=== PATIENT | female | born 1995 | race Caucasian/White ===

== ENCOUNTER 2018-07-25 22:59 | Emergency (ER) | payer BC ==
[2018-07-26] MEDS ORDERED: IPRATROPIUM-ALBUTEROL 3 ML NEB INHALATION STA (01:15)
[2018-07-26] MEDS ORDERED: SODIUM CHLORIDE 0.9% 1,000 ML IV STA (01:15)
--- NOTE | 2018-07-26 01:16 | ED ---
SOB HPI - General Chief Complaint: Shortness of Breath Stated Complaint: NIRALI Time Seen by Provider: 07/26/18 01:14 Source: patient, RN notes reviewed, old records reviewed Mode of arrival: ambulatory Limitations: no limitations - History of Present Illness Initial Comments: This is a 20-year-old female the ER for evaluation this patient does say for paulina luation of shortness of breath. Shortness breath 4 days since Tuesday. No improvement in symptoms diagnosed with muscle strain. Patient has no recent travel history or sick contacts. No prior history of shortness of breath or chest pain. No fevers, no cough congestion significant sick contacts. Patient did have chest x-ray today unsure of results. Patient is here with family, no one with similar complaints. Patient states the pain is worse when she takes a deep breath worse when she is doing activity. MD Complaint: shortness of breath -: days(s) (5) Severity: mild Severity scale (1-10): 3 Quality: dull Consistency: intermittent Improves With: nothing Worsens With: exertion, movement Context: recent URI Associated Symptoms: pain with inspiration, cough, other (Anxiety) Treatments Prior to Arrival: none - Related Data Allergies Allergy/AdvReac Type Severity Reaction Status Date / Time amoxicillin AdvReac Rash/Hives Verified 07/25/18 23:03 Review of Systems ROS Statement: Those systems with pertinent positive or pertinent negative responses have been documented in the HPI. ROS Other: All systems not noted in ROS Statement are negative. Past Medical History Past Medical History: No Reported History History of Any Multi-Drug Resistant Organisms: None Reported Past Surgical History: No Surgical Hx Reported Past Psychological History: No Psychological Hx Reported Smoking Status: Never smoker Past Alcohol Use History: Occasional Past Drug Use History: None Reported General Exam Limitations: no limitations General appearance: alert, in no apparent distress Head exam: Present: atraumatic, normocephalic, normal inspection Eye exam: Present: normal appearance, PERRL, EOMI. Absent: scleral icterus, conjunctival injection, periorbital swelling ENT exam: Present: normal exam, mucous membranes moist Neck exam: Present: normal inspection. Absent: tenderness, meningismus, lymphadenopathy Respiratory exam: Present: normal lung sounds bilaterally. Absent: respiratory distress, wheezes, rales, rhonchi, stridor Cardiovascular Exam: Present: regular rate, normal rhythm, normal heart sounds. Absent: systolic murmur, diastolic murmur, rubs, gallop, clicks GI/Abdominal exam: Present: soft, normal bowel sounds. Absent: distended, tenderness, guarding, rebound, rigid Extremities exam: Present: normal inspection, full ROM, normal capillary refill. Absent: tenderness, pedal edema, joint swelling, calf tenderness Back exam: Present: normal inspection Neurological exam: Present: alert, oriented X3, CN II-XII intact Psychiatric exam: Present: normal affect, normal mood Skin exam: Present: warm, dry, intact, normal color. Absent: rash Course Vital Signs 07/25/18 07/26/18 07/26/18 23:00 02:04 02:10 Temperature 98.3 F Pulse Rate 99 84 96 Respiratory 18 Rate Blood Pressure 147/92 O2 Sat by Pulse 100 Oximetry 07/26/18 07/26/18 04:30 04:37 Temperature 97.9 F Pulse Rate 72 Respiratory 12 20 Rate Blood Pressure 105/67 O2 Sat by Pulse 100 Oximetry - Reevaluation(s) Reevaluation #1: 07/26/18 01:48 Medical record is reviewed Reevaluation #2: 07/26/18 01:48 Patient is in no acute distress, x-ray outpatient is reviewed which is negative Medical Decision Making - Medical Decision Making 22 female the ER for shortness of breath, second evaluation for shortness of breath both her primary care as well as outpatient x-ray, patient's in no acute distress but also complaining of left-sided chest pain. CTA chest is negative for acute disease on patient will be discharged to follow-up with primary care - Lab Data Result diagrams: 07/26/18 01:49 07/26/18 01:49 Lab Results 07/26/18 07/26/18 07/26/18 Range/Units 01:49 01:49 01:49 WBC 8.3 (3.8-10.6) k/uL RBC 4.77 (3.80-5.40) m/uL Hgb 14.2 (11.4-16.0) gm/dL Hct 42.8 (34.0-46.0) % MCV 89.7 (80.0-100.0) fL MCH 29.7 (25.0-35.0) pg MCHC 33.1 (31.0-37.0) g/dL RDW 12.0 (11.5-15.5) % Plt Count 227 (150-450) k/uL Neutrophils % 63 % Lymphocytes % 28 % Monocytes % 5 % Eosinophils % 2 % Basophils % 0 % Neutrophils # 5.2 (1.3-7.7) k/uL Lymphocytes # 2.3 (1.0-4.8) k/uL Monocytes # 0.4 (0-1.0) k/uL Eosinophils # 0.1 (0-0.7) k/uL Basophils # 0.0 (0-0.2) k/uL PT 10.2 (9.0-12.0) sec INR 0.9 (<1.2) APTT 25.5 (22.0-30.0) sec D-Dimer 0.43 (<0.60) mg/L FEU Sodium 140 (137-145) mmol/L Potassium 4.3 (3.5-5.1) mmol/L Chloride 108 H (98-107) mmol/L Carbon Dioxide 21 L (22-30) mmol/L Anion Gap 11 mmol/L BUN 13 (7-17) mg/dL Creatinine 0.79 (0.52-1.04) mg/dL Est GFR (CKD-EPI)AfAm >90 (>60 ml/min/1.73 sqM) Est GFR (CKD-EPI)NonAf >90 (>60 ml/min/1.73 sqM) Glucose 91 (74-99) mg/dL Calcium 10.1 (8.4-10.2) mg/dL Total Bilirubin 0.5 (0.2-1.3) mg/dL AST 16 (14-36) U/L ALT 11 (9-52) U/L Alkaline Phosphatase 50 (38-126) U/L Creatine Kinase 53 (30-135) U/L Troponin I (0.000-0.034) ng/mL NT-Pro-B Natriuret Pep pg/mL Total Protein 7.4 (6.3-8.2) g/dL Albumin 4.5 (3.5-5.0) g/dL 07/26/18 07/26/18 Range/Units 01:49 01:49 WBC (3.8-10.6) k/uL RBC (3.80-5.40) m/uL Hgb (11.4-16.0) gm/dL Hct (34.0-46.0) % MCV (80.0-100.0) fL MCH (25.0-35.0) pg MCHC (31.0-37.0) g/dL RDW (11.5-15.5) % Plt Count (150-450) k/uL Neutrophils % % Lymphocytes % % Monocytes % % Eosinophils % % Basophils % % Neutrophils # (1.3-7.7) k/uL Lymphocytes # (1.0-4.8) k/uL Monocytes # (0-1.0) k/uL Eosinophils # (0-0.7) k/uL Basophils # (0-0.2) k/uL PT (9.0-12.0) sec INR (<1.2) APTT (22.0-30.0) sec D-Dimer (<0.60) mg/L FEU Sodium (137-145) mmol/L Potassium (3.5-5.1) mmol/L Chloride (98-107) mmol/L Carbon Dioxide (22-30) mmol/L Anion Gap mmol/L BUN (7-17) mg/dL Creatinine (0.52-1.04) mg/dL Est GFR (CKD-EPI)AfAm (>60 ml/min/1.73 sqM) Est GFR (CKD-EPI)NonAf (>60 ml/min/1.73 sqM) Glucose (74-99) mg/dL Calcium (8.4-10.2) mg/dL Total Bilirubin (0.2-1.3) mg/dL AST (14-36) U/L ALT (9-52) U/L Alkaline Phosphatase (38-126) U/L Creatine Kinase (30-135) U/L Troponin I <0.012 (0.000-0.034) ng/mL NT-Pro-B Natriuret Pep 28 pg/mL Total Protein (6.3-8.2) g/dL Albumin (3.5-5.0) g/dL - Radiology Data Radiology results: report reviewed (CT angiogram chest is negative for acute disease), image reviewed Disposition Clinical Impression: Chest pain Disposition: HOME SELF-CARE Condition: Good Instructions (If sedation given, give patient instructions): Chest Wall Pain (ED) Is patient prescribed a controlled substance at d/c from ED?: No Referrals: Sonia Peacock MD [Primary Care Provider] - 1-2 days
[2018-07-26 02:20] LABS: Basophils % (A) 0 %; Eosinophils # (A) 0.1 k/uL (0-0.7); Eosinophils % (A) 2 %; HCT 42.8 % (34.0-46.0); HGB 14.2 gm/dL (11.4-16.0); Lymphocytes # (A) 2.3 k/uL (1.0-4.8); Lymphocytes % (A) 28 %; MCH 29.7 pg (25.0-35.0); MCHC 33.1 g/dL (31.0-37.0); MCV 89.7 fL (80.0-100.0); Mean Platelet Volume 6.7; Monocytes # (A) 0.4 k/uL (0-1.0); Monocytes % (A) 5 %; Neutrophils # (A) 5.2 k/uL (1.3-7.7); Neutrophils % (A) 63 %; Platelet Count 227 k/uL (150-450); RBC 4.77 m/uL (3.80-5.40); WBC 8.3 k/uL (3.8-10.6)
[2018-07-26 02:41] LABS: D-Dimer 0.43 mg/L FEU (<0.60); INR 0.9 (<1.2); Partial Thromboplastin Time 25.5 sec (22.0-30.0); Prothrombin Time 10.2 sec (9.0-12.0)
[2018-07-26 02:51] LABS: ALT 11 U/L (9-52); AST 16 U/L (14-36); Albumin 4.5 g/dL (3.5-5.0); Alkaline Phosphatase 50 U/L (38-126); Anion Gap 11 mmol/L; Blood Urea Nitrogen 13 mg/dL (7-17); Calcium 10.1 mg/dL (8.4-10.2); Carbon Dioxide 21 mmol/L (22-30); Chloride 108 mmol/L (98-107); Creatine Kinase 53 U/L (30-135); Glucose 91 mg/dL (74-99); Potassium 4.3 mmol/L (3.5-5.1); Sodium 140 mmol/L (137-145); Total Bilirubin 0.5 mg/dL (0.2-1.3); Total Protein 7.4 g/dL (6.3-8.2)
--- NOTE | 2018-07-26 03:52 | CT ---
EXAM: CT Angiography Chest With Intravenous Contrast CLINICAL HISTORY: ITS.REASON CT Reason: Pain TECHNIQUE: Axial computed tomographic angiography images of the chest with intravenous contrast using pulmonary embolism protocol. CTDI is 7 mGy and DLP is 230 mGy-cm. This CT exam was performed using one or more of the following dose reduction techniques: automated exposure control, adjustment of the mA and/or kV according to patient size, and/or use of iterative reconstruction technique. MIP reconstructed images were created and reviewed. COMPARISON: No relevant prior studies available. FINDINGS: Pulmonary arteries: No filling defects. Aorta: No thoracic aortic aneurysm. Lungs: No mass. No consolidation. Pleural space: No significant effusion. No pneumothorax. Heart: No cardiomegaly or pericardial effusion. Bones/joints: No acute fracture or dislocation. Soft tissues: Unremarkable. Lymph nodes: No enlarged lymph nodes. IMPRESSION: No acute intrathoracic findings.
[2018-07-26 04:31] VITALS: BP 105/67; PULSE 72; TEMP 97.9
[2018-07-26 04:37] VITALS: RESP 20
== END 2018-07-26 04:39 | disposition home or self-care (01) ==
LOC: EC 22:59
DX: R07.1 Chest pain on breathing (principal); R06.02 Shortness of breath; F41.9 Anxiety disorder, unspecified; R05 Cough; Z88.0 Allergy status to penicillin
CPT/HCPCS: 36415; 94640; 93005; 85379; 83880; 80053; 82550; 84484; 85025; 85610; 85730; 71275; 99285; 96360; Q9967

== ENCOUNTER → 2018-07-25 | Outpatient (CLI) | payer BC ==
--- NOTE | 2018-07-25 12:59 | XR ---
EXAMINATION TYPE: XR chest 2V DATE OF EXAM: 07/25/2018 COMPARISON: NONE HISTORY: Shortness of breath TECHNIQUE: Frontal and lateral views of the chest are obtained. FINDINGS: There is no focal air space opacity, pleural effusion, or pneumothorax seen. The cardiac silhouette size is within normal limits. There is a spinal curvature. The osseous structures are int act. IMPRESSION: No acute cardiopulmonary process.
== END ==
LOC: RADXRYALE 10:51
PROVIDERS: ATTEND Internal Medicine
DX: R06.02 Shortness of breath (principal)
CPT/HCPCS: 71046

== ENCOUNTER 2022-02-25 15:03 | Inpatient (IN) | payer BC, OTHER ==
[2022-03-03] MEDS ORDERED: BUTORPHANOL 1 MG/ML 1 ML VIAL IV PRN ×2 (19:01→19:51)
[2022-03-03] MEDS ORDERED: DINOPROSTONE 10 MG INSERT.ER VAGINAL ONE (19:30)
--- NOTE | 2022-03-03 19:58 | P.HPOB ---
History of Present Illness H&P Date: 03/03/22 Chief Complaint: 41-0/7 weeks, cervical ripening, induction the patient is a 26-year-old 1 para 0 admitted at 41-0/7 weeks as established by last menstrual period and 8 week ultrasound. She is admitted for Cervidil cervical ripening secondary to unfavorable cervix in a postdates . Her has otherwise been entirely uncomplicated. She is Rh- and received RhoGAM at 28 weeks. On labor and delivery, all signs reassuring with a category 1 heart rate tracing. Group B strep status is negative. Obstetrical history: 1 para 0 with current statistics listed in history present illness. EDC of 02/25/2022 was established by last menstrual period and confirmed by an 8 week ultrasound. Laboratory workup demonstrates a blood type of O- with a negative antibody screen. Rubella status is immune. The remainder of the laboratory workup was within normal limits. One hour Glucola was normal and group B strep status is negative. Gynecologic history: Unremarkable with no history of any infections to include STDs. Review of Systems review of systems is confined to history of present illness. Past Medical History Past Medical History: GERD/Reflux History of Any Multi-Drug Resistant Organisms: None Reported Past Surgical History: No Surgical Hx Reported Past Anesthesia/Blood Transfusion Reactions: No Reported Reaction Past Psychological History: No Psychological Hx Reported Smoking Status: Never smoker Past Alcohol Use History: Occasional Past Drug Use History: None Reported - Past Family History Mother Family Medical History: No Reported History Medications and Allergies Home Medications Medication Instructions Recorded Confirmed Type Vit No.179/Iron/Folic 1 each PO DAILY 03/03/22 03/03/22 History [ Tablet] Allergies Allergy/AdvReac Type Severity Reaction Status Date / Time amoxicillin AdvReac Rash/Hives Verified 02/16/22 08:30 Exam Vital Signs Temp Pulse Resp BP 03/03/22 18:58 97.5 F L 118 H 17 141/76 Intake and Output 03/03/22 03/03/22 03/03/22 06:59 14:59 22:59 Other: Weight 85.275 kg in general, this is a well-developed, well-nourished white female in no acute distress. Her heart has a regular rhythm and rate without murmur. Her lungs are clear to auscultation bilaterally in all moise. Her abdomen is gravid, nondistended, has normal active bowel sounds, soft, nontender, and without any palpable masses aside from the uterine fundus. Her extremities are without any cyanosis, clubbing, or significant edema and are nontender to palpation bilaterally. Digital cervical examination demonstrates her cervix remain fingertip in dilation, approximately 50% effaced with the vertex in presentation at -2 station. The cervix is very posterior. Assessment and Plan (1) Unfavorable cervix in term Current Visit: Yes Status: Acute Code(s): O34.40 - MATERNAL CARE FOR OTH AB NLT OF CERVIX, UNSP TRIMESTER SNOMED Code(s): 906028998 (2) Post-dates Current Visit: Yes Status: Acute Code(s): O48.0 - POST-TERM SNOMED Code(s): 52665173 Plan: the patient is admitted for Cervidil cervical ripening which was placed into the posterior fornix in standard fashion. She will have close maternal and surveillance and expectant management will be practiced. I have explained risks and complications of the procedures involved and she is understood and agreed to proceed. She is a good candidate for either IV or epidural analgesia, whichever she may choose.
[2022-03-03 22:16] LABS: Basophils % (A) 0 %; Eosinophils # (A) 0.2 k/uL (0-0.7); Eosinophils % (A) 2 %; HCT 33.7 % (34.0-46.0); HGB 11.4 gm/dL (11.4-16.0); Hypochromasia Slight; Lymphocytes # (A) 1.6 k/uL (1.0-4.8); Lymphocytes % (A) 18 %; MCH 30.5 pg (25.0-35.0); MCHC 33.7 g/dL (31.0-37.0); MCV 90.4 fL (80.0-100.0); Mean Platelet Volume 8.4; Monocytes # (A) 0.7 k/uL (0-1.0); Monocytes % (A) 8 %; Neutrophils # (A) 6.2 k/uL (1.3-7.7); Neutrophils % (A) 69 %; Platelet Count 229 k/uL (150-450); RBC 3.72 m/uL (3.80-5.40); RDW 13.6 % (11.5-15.5); WBC 9.1 k/uL (3.8-10.6)
[2022-03-04] MEDS: LACTATED RINGERS 1,000 ML IV SCH ×3 (05:40→15:54)
[2022-03-04] MEDS ORDERED: CARBOPROST TROMETHAMINE 250 MCG/ML 1 ML AMP IM PRN (06:00)
[2022-03-04] MEDS ORDERED: METHYLERGONOVINE 0.2 MG/ML 1 ML AMP IM PRN (06:00)
[2022-03-04] MEDS ORDERED: miSOPROStoL 200 MCG TAB PO PRN (06:00)
[2022-03-04] MEDS ORDERED: LIDOCAINE 0.5% (PF) 5 MG/ML (50 ML SDV) SQ PRN (06:00)
[2022-03-04] MEDS ORDERED: OXYTOCIN 10 UNIT/ML 1 ML VIAL IM PRN (06:00)
[2022-03-04] MEDS ORDERED: TERBUTALINE 1 MG/ML VIAL SQ PRN (06:00)
[2022-03-04] MEDS ORDERED: TRANEXAMIC ACID IN NACL,ISO-OS 1,000 MG in EMPTY BAG 1 BAG IV PRN (06:00)
[2022-03-04] MEDS: OXYTOCIN 30 UNITS/500 ML NS 30 UNIT in SALINE 1 500ML.BAG IV SCH ×2 (06:06→19:48)
[2022-03-04] MEDS ORDERED: fentaNYL (PF) 50 MCG/ML 5 ML AMP ONE (10:20)
[2022-03-04] MEDS ORDERED: SODIUM CHLORIDE 0.9% 100 ML BAG ONE (10:20)
[2022-03-04] MEDS ORDERED: BUPIVACAINE (PF) 0.25% 30 ML VIAL ONE (10:20)
[2022-03-04] MEDS ORDERED: ROPIVACAINE 100 MG, fentaNYL (PF). 200 MCG in SODIUM CHLORIDE 0.9% 76 ML EPIDURAL ONE (13:20)
[2022-03-04] MEDS ORDERED: LANOLIN CREAM 5 GM TUBE TOPICAL PRN (18:55)
[2022-03-04] MEDS ORDERED: ACETAMINOPHEN TAB 325 MG TAB PO PRN (18:55)
[2022-03-04] MEDS ORDERED: HYDROCORTISONE 2.5% RECTAL CREAM 30 GM TUBE RECTAL PRN (18:55)
[2022-03-04] MEDS ORDERED: BENZOCAINE/MENTHOL SPRAY 1 GM/SPRAY AEROSOL TOPICAL PRN (18:55)
[2022-03-04] MEDS ORDERED: diphenhydrAMINE 50 MG CAP PO PRN (18:55)
[2022-03-04] MEDS ORDERED: diphenhydrAMINE 25 MG CAP PO PRN (18:55)
[2022-03-04] MEDS ORDERED: SIMETHICONE 80 MG CHEWABLE PO PRN (18:55)
[2022-03-04] MEDS ORDERED: HYDROcodone/APAP 7.5-325MG 1 EACH TAB PO PRN (18:55)
[2022-03-04] MEDS ORDERED: diphenhydrAMINE 50 MG/ML 1 ML VIAL IVP PRN ×2 (18:55)
[2022-03-04] MEDS ORDERED: HYDROcodone/APAP 5-325MG 1 EACH TAB PO PRN (18:55)
[2022-03-04] MEDS ORDERED: ZOLPIDEM 5 MG TAB PO PRN (18:55)
[2022-03-04] MEDS ORDERED: OXYTOCIN 30 UNITS/500 ML NS 30 UNIT in SALINE 1 500ML.BAG IV SCH (19:00)
--- NOTE | 2022-03-04 19:01 | P.PROBDLV ---
Vaginal Delivery Note - . Vaginal Delivery Note: the patient is a 26-year-old 1 para 0 admitted at 41 weeks by good dating parameters perches admitted for, initially, Cervidil cervical ripening as she had a significantly unfavorable cervix. testing prior to induction and following her due date was reassuring with a normal ALDAIR and reactive NST. Her was entirely uncomplicated though she was Rh- and received RhoGAM at 28 weeks. On labor and delivery, all signs are reassuring with a category 1 heart rate tracing. She had Cervidil placed in the posterior fornix per protocol and rested relatively comfortably through the night until approximately between 4 and 5 AM at which time she began to have more significant contractions. This morning, she was found to have a cervix favorable enough for artificial rupture of membranes at 1 cm, 50% effaced with the vertex in presentation at -2 station. Artificial rupture of membranes is carried out demonstrating clear fluid. She began to progress and was significantly uncomfortable and had an epidural catheter placed for analgesia. She then progressed slowly through the latent phase and into the active phase to approximately 5 cm after which time she made fairly rapid progress to complete and 0 station. She pushed for approximately 1 hour to a normal spontaneous vaginal delivery of a viable 8 lbs. 10 oz. baby boy with Apgars of 9 at 1 minute and 9 at 5 minutes delivered in the left occiput anterior position. There was a nuchal cord 1 which was reduced following delivery of the . The placenta was delivered spontaneously, intact, and grossly normal with a grossly normal, centrally inserted three-vessel cord. A second-degree midline episiotomy had been cut for the delivery as the patient had been for approximately 5-6 contractions and was concern for possibility of a shoulder dystocia as well as a laceration in another direction. Following delivery of the placenta, the episiotomy was repaired in standard fashion using 3-0 chromic catgut without difficulty. She did have some moderate atony in the immediate post period and required a dose of Methergine which ultimately controlled the bleeding. Estimated blood loss for the case was approximate 500 mL. There were no complications. All sponge, instrument, needle counts were correct. Both mother and are resting comfortably in recovery.
[2022-03-04 19:39] VITALS: RESP 16
[2022-03-04] MEDS: SENNOSIDES-DOCUSATE SODIUM 1 EACH TAB PO SCH (19:49)
[2022-03-04] MEDS: IBUPROFEN 600 MG TAB PO PRN (19:49)
[2022-03-05] MEDS: LACTATED RINGERS 1,000 ML IV SCH (03:12)
[2022-03-05] MEDS: IBUPROFEN 600 MG TAB PO PRN ×2 (04:48→10:52)
[2022-03-05] MEDS: SENNOSIDES-DOCUSATE SODIUM 1 EACH TAB PO SCH (08:30)
[2022-03-05 09:03] LABS: Basophils % (A) 0 %; Eosinophils % (A) 0 %; HCT 23.7 % (34.0-46.0); Hypochromasia Slight; Lymphocytes # (A) 1.9 k/uL (1.0-4.8); Lymphocytes % (A) 12 %; MCH 30.6 pg (25.0-35.0); MCHC 34.5 g/dL (31.0-37.0); MCV 88.8 fL (80.0-100.0); Mean Platelet Volume 8.8; Monocytes % (A) 6 %; Neutrophils # (A) 12.8 k/uL (1.3-7.7); Neutrophils % (A) 80 %; Platelet Count 236 k/uL (150-450); RBC 2.67 m/uL (3.80-5.40); RDW 13.8 % (11.5-15.5); WBC 16.1 k/uL (3.8-10.6)
[2022-03-05 09:12] LABS: HGB 8.2 gm/dL (11.4-16.0)
--- NOTE | 2022-03-05 09:42 | P.DS ---
Providers Date of admission: 03/03/22 18:41 Expected date of discharge: 03/05/22 Attending physician: Edin Mg Primary care physician: Stated None - Discharge Diagnosis(es) (1) Unfavorable cervix in term Current Visit: Yes Status: Acute (2) Post-dates Current Visit: Yes Status: Acute (3) Normal spontaneous vaginal delivery Current Visit: Yes Status: Acute Hospital Course: the patient is a 26-year-old 1 para 0 admitted at 41-0/7 weeks by good dating parameters perches admitted initially for Cervidil cervical ripening as she is 1 week post dates with a very unfavorable cervix. On labor and delivery, all signs reassuring. Her was otherwise uncomplicated aside from being Rh- and having received RhoGAM at 28 weeks. She had Cervidil placed the night prior to intended induction and remained quiet through most of the night but began to have significant labor symptoms approximately 5:00 in the morning on the day of induction. At the time that I arrived after that, the cervix was found to be 1 and 50% and artificial rupture of membranes is able to be carried out demonstrating clear fluid. She made progress throughout the day and had an epidural catheter placed while still in the latent phase of labor. She then ultimately did progress to complete and pushed over the course of an hour to a normal spontaneous vaginal delivery of a viable 8 lbs. 10 oz. baby boy with Apgars of 9 at 1 minute and 9 at 5 minutes. Her course was unremarkable with vital signs being stable and her temperature was afebrile throughout. She was deemed stable for discharge on day #1 was discharged home to follow-up in the office in 6 weeks' time routinely. Discharge instructions included calling for any significantly increased bleeding or foul-smelling lochia, significantly increased fever abdominal pain, perineal complaints, breast complaints, or anything else that concerned her. She was additionally instructed to have nothing in the vagina for at least 6 weeks time to include intercourse. She understood her instructions and agrees to follow up as noted above. Discharge medications included continued vitamins as she has opted to breast-feed. She was otherwise to use [id number] analgesic pain medications as needed. Maternal blood type is O- and rubella status is immune. cord blood was sent for evaluation for the necessity of RhoGAM prior to discharge. Procedures: #1. Cervidil cervical ripening #2. Pitocin augmentation #3. Artificial rupture of membranes #4. Epidural analgesia #5. Normal spontaneous vaginal delivery #6. Second-degree midline episiotomy and repair Patient Condition at Discharge: Stable Plan - Discharge Summary New Discharge Prescriptions: No Action Vit No.179/Iron/Folic [ Tablet] 1 each PO DAILY Discharge Medication List Vit No.179/Iron/Folic [ Tablet] 1 each PO DAILY 03/03/22 [History] Follow up Appointment(s)/Referral(s): Edin Mg MD [STAFF PHYSICIAN] - 6 Weeks Discharge Disposition: HOME SELF-CARE
[2022-03-05 15:52] VITALS: BP 127/78; PULSE 111; TEMP 98.8
== END 2022-03-05 19:50 | disposition home or self-care (01) | DRG 807 ==
LOC: MERGE 15:03 → 4FBP 03-03 18:41
PROVIDERS: ADMIT Obstetrics & Gynecology; ATTEND Obstetrics & Gynecology
PROC: 10E0XZZ Delivery of Products of Conception, External Approach (ICD-10-PCS; principal; 2022-03-04)
PROC: 4A0HXCZ Measurement of Products of Conception, Cardiac Rate, External Approach (ICD-10-PCS; 2022-03-04)
PROC: 3E0P7VZ Introduction of Hormone into Female Reproductive, Via Natural or Artificial Opening (ICD-10-PCS; 2022-03-04)
PROC: 3E0234Z Introduction of Serum, Toxoid and Vaccine into Muscle, Percutaneous Approach (ICD-10-PCS; 2022-03-04)
PROC: 10907ZC Drainage of Amniotic Fluid, Therapeutic from Products of Conception, Via Natural or Artificial Opening (ICD-10-PCS; 2022-03-04)
PROC: 0W8NXZZ Division of Female Perineum, External Approach (ICD-10-PCS; 2022-03-04)
DX: O34.43 Maternal care for other abnormalities of cervix, third trimester (principal); Z37.0 Single live birth; O48.0 Post-term pregnancy; O69.81X0 Labor and delivery complicated by cord around neck, without compression, not applicable or unspecified; Z3A.41 41 weeks gestation of pregnancy; O99.62 Diseases of the digestive system complicating childbirth; K21.9 Gastro-esophageal reflux disease without esophagitis; Z88.1 Allergy status to other antibiotic agents; O26.893 Other specified pregnancy related conditions, third trimester; Z67.41 Type O blood, Rh negative
CPT/HCPCS: 85025; 86850; 86870; 86880; 86900; 86901